=== PATIENT | female | born 1960 | race Caucasian/White ===

== ENCOUNTER 2024-03-04 19:13 | Emergency (ER) | payer BC ==
[2024-03-04 20:04] VITALS: BP 119/57; PULSE 83
[2024-03-04] MEDS: Acetaminophen 325 MG Tab PO ONE (20:08)
== END 2024-03-04 21:25 | disposition home or self-care (01) ==
LOC: DL.ED 19:13
DX: S93.401A Sprain of unspecified ligament of right ankle, initial encounter (principal); M79.674 Pain in right toe(s); W01.0XXA Fall on same level from slipping, tripping and stumbling without subsequent striking against object, initial encounter
CPT/HCPCS: 73610-RT; 73630-RT; 99283; A9270-GY